=== PATIENT | female | born 1975 | race Caucasian/White ===

== ENCOUNTER 2022-08-22 01:47 | Emergency (ER) | payer OTHER ==
[2022-08-22 02:05] VITALS: BP 143/90; PULSE 85; RESP 15; TEMP 97.6; BMI 27.4
[2022-08-22] MEDS ORDERED: AMOX TR/POT CLAV 875MG/125MG TABLETS (FP) PO ONE (03:14)
[2022-08-22] MEDS ORDERED: AMOX TR/POT CLAV 875MG/125MG TABLETS (FP) ONE (03:23)
== END 2022-08-22 04:25 | disposition short-term general hospital (02) ==
LOC: JER 01:47
DX: S01.81XA Laceration without foreign body of other part of head, initial encounter (principal); W54.8XXA Other contact with dog, initial encounter
CPT/HCPCS: 99283-25